=== PATIENT | male | born 1985 | race Caucasian/White ===

== ENCOUNTER 2016-07-27 10:42 | Emergency (ER) | payer SELFPAY ==
[~2016-07-27] VITALS: Ht 180.3 cm; Wt 123.4 kg
[~2016-07-27 10:42] MED LIST: AMOX875T PO; OXYC-244 PO
[2016-07-27 10:46] VITALS: BP 140/85
--- NOTE | 2016-07-27 10:56 | PHYS DOC ---
Past History Past Medical History: Seizure Past Surgical History: No Surgical History Alcohol Use: None Drug Use: None Adult General Chief Complaint Chief Complaint: SKIN PROBLEM HPI HPI 29 -year-old male patient states he has had multiple bedbugs bites and complaining of redness and pain in his right foot since this morning and thinks he has infection of the bedbug bite. Patient denies fever and chills, pus drainage, sick contacts, history of MRSA. Review of Systems Review of Systems Constitutional: Denies fever or chills [] Eyes: Denies change in visual acuity, redness, or eye pain [] HENT: Denies nasal congestion or sore throat [] Respiratory: Denies cough or shortness of breath [] Cardiovascular: No additional information not addressed in HPI [] GI: Denies abdominal pain, nausea, vomiting, bloody stools or diarrhea [] : Denies dysuria or hematuria [] Musculoskeletal: Denies back pain or joint pain [] Integument: See HPI Neurologic: Denies headache, focal weakness or sensory changes [] Endocrine: Denies polyuria or polydipsia [] Allergies Allergies Allergies Coded Allergies Type Severity Reaction Last Updated Verified cortisone Allergy Unknown Rash 07/27/16 Yes Physical Exam Physical Exam Constitutional: Mild distress, unkempt,non-toxic appearance. [] HENT: Normocephalic, atraumatic, bilateral external ears normal, oropharynx moist, no oral exudates, nose normal. [] Eyes: PERRLA, EOMI, conjunctiva normal, no discharge. [] Neck: Normal range of motion, no tenderness, supple, no stridor. [] Cardiovascular:Heart rate regular rhythm, no murmur [] Lungs & Thorax: Bilateral breath sounds clear to auscultation [] Skin: Multiple bedbugs bites, right foot with 4 x 8 cm area of erythema and edema and tenderness without sign of abscess in dorsal and lateral of foot Back: No tenderness, no CVA tenderness.right foot cellulitis [] Extremities: no cyanosis, no clubbing, ROM intact, no edema. [] Neurologic: Alert and oriented X 3, normal motor function, normal sensory function, no focal deficits noted. [] Psychologic: Affect normal, judgement normal, mood normal. [] Current Patient Data Vital Signs Vital Signs Date Time Temp Pulse Resp B/P Pulse Ox O2 Delivery O2 Flow Rate FiO2 3/24/17 10:46 97.9 98 18 98 Room Air EKG EKG [] Radiology/Procedures Radiology/Procedures [] Impressions: Right foot cellulitis Arvind Disclaimer Jeanettejanae Disclaimer This chart was dictated in whole or in part using Voice Recognition software in a busy, high-work load, and often noisy Emergency Department environment. It may contain unintended and wholly unrecognized errors or omissions. Departure Departure: Impression: Primary Impression: MRSA cellulitis of right foot Additional Impression: Bed bug bite Disposition: HOME, SELF-CARE (At 1100) Condition: STABLE Referrals: PCP,NO (PCP) Patient Instructions: Cellulitis, Community-Associated MRSA Additional Instructions: Keep wound clean and dry Follow up with your doctor or return to ER in not getting better in 2 days Scripts Cephalexin (Keflex)500 Mg Capsule2 Cap PO BID #28 CAP Prov:WERNER SANDOVAL MD 07/27/16 Sulfamethoxazole/Trimethoprim (Bactrim Ds Tablet)1 Each Tablet1 Tab PO BID #14 TAB Prov:WERNER SANDOVAL MD 07/27/16 Problem Qualifiers WERNER SANDOVAL MD Jul 27, 2016 10:56
[2016-07-27] MEDS ORDERED: SULF1TAB24 PO (11:04)
[2016-07-27] MEDS ORDERED: CEPH-264 PO (11:04)
== END 2016-07-27 11:12 | disposition home or self-care (01) ==
LOC: ER 10:42
DX: A49.02 Methicillin resistant Staphylococcus aureus infection, unspecified site (principal); M79.671 Pain in right foot; Z88.8 Allergy status to other drugs, medicaments and biological substances
CPT/HCPCS: 99283

== ENCOUNTER 2016-12-21 01:00 | Emergency (ER) | payer SELFPAY ==
[~2016-12-21] VITALS: Ht 180.3 cm; Wt 127.3 kg
[2016-12-21 01:00] VITALS: BP 133/82
[~2016-12-21 01:00] MED LIST changes: +CEPH-264 PO; -OXYC-244 PO; +OXYC-327 PO; +SULF1TAB24 PO
--- NOTE | 2016-12-21 01:33 | PHYS DOC ---
Past History Past Medical History: Seizure Past Surgical History: No Surgical History Alcohol Use: None Drug Use: None Adult General Chief Complaint Chief Complaint: DENTAL PROBLEM HPI HPI Patient is a 31 year old M who presents with dental pain. Kervin states that he had dental pain in his left upper molar starting approximately one week ago. He states that several days ago the tooth broke and the pain improved. He states that he grinds his teeth at night and tonight the pain woke him from sleep. He does take Dilantin which she states makes his gums bleed making it impossible for him to brush his teeth. He states that he has discussed this problem with his doctor and this is the only medication the has helped with his seizures. Review of Systems Review of Systems Constitutional: Denies fever or chills [] Eyes: Denies change in visual acuity, redness, or eye pain [] HENT: Denies nasal congestion or sore throat [] Respiratory: Denies cough or shortness of breath [] Cardiovascular: No additional information not addressed in HPI [] GI: Denies abdominal pain, nausea, vomiting, bloody stools or diarrhea [] : Denies dysuria or hematuria [] Musculoskeletal: Denies back pain or joint pain [] Integument: Denies rash or skin lesions [] Neurologic: Denies headache, focal weakness or sensory changes [] Endocrine: Denies polyuria or polydipsia [] Family History Family History Noncontributory Current Medications Current Medications Medications reviewed Allergies Allergies Allergies Coded Allergies Type Severity Reaction Last Updated Verified cortisone Allergy Unknown Rash 07/27/16 Yes Physical Exam Physical Exam Constitutional: Well developed, well nourished, no acute distress, non-toxic appearance. [] HENT: Normocephalic, atraumatic, bilateral external ears normal, oropharynx moist, no oral exudates, nose normal. Poor dental hygiene, mouth gum hypertrophy without bleeding, fractured left upper tooth that is tender to palpation Eyes: PERRLA, EOMI, conjunctiva normal, no discharge. [] Neck: Normal range of motion, no tenderness, supple, no stridor. [] Cardiovascular:Heart rate regular rhythm, no murmur [] Lungs & Thorax: Bilateral breath sounds clear to auscultation [] Skin: Warm, dry, no erythema, no rash. [] Extremities: No tenderness, no cyanosis, no clubbing, ROM intact, no edema. [] Neurologic: Alert and oriented X 3, normal motor function, normal sensory function, no focal deficits noted. [] Psychologic: Affect normal, judgement normal, mood normal. [] Current Patient Data Vital Signs Vital Signs Date Time Temp Pulse Resp B/P (MAP) Pulse Ox O2 Delivery O2 Flow Rate FiO2 12/21/16 01:00 97.9 72 20 98 Room Air Course & Med Decision Making Course & Med Decision Making Pertinent Labs and Imaging studies reviewed. (See chart for details) Kervin was advised that his symptoms were consistent with a dental infection requiring antibiotics. He was advised to begin his antibiotics in the emergency room. He repeatedly declined oral antibiotics stating that he did not have the money to fill the prescription. He was advised that not treating dental infections may result in . He verbalized understanding and continued to refuse antibiotics in the emergency room as well as a prescription for antibiotics. He states that he may be able to find help from a local hindu and if he did he would return to the emergency room for prescription he was advised to take a paper prescription to fill so that he would be able to start antibiotics as soon as he was able to find financial help. He again declined. He left AGAINST MEDICAL ADVICE Dragon Disclaimer Dragon Disclaimer This chart was dictated in whole or in part using Voice Recognition software in a busy, high-work load, and often noisy Emergency Department environment. It may contain unintended and wholly unrecognized errors or omissions. Departure Departure: Impression: Primary Impression: Tooth abscess Disposition: AGAINST MEDICAL ADVICE Condition: GUARDED Referrals: PCP,NO (PCP) Patient Instructions: Dental Abscess Additional Instructions: Kervin was seen in the emergency room for dental pain. He was found to have a dental infection requiring antibiotics. He left AGAINST MEDICAL ADVICE without receiving antibiotics. He was advised that dental infections may result in worsening conditions including . He did verbalize understanding and continued to decline antibiotics YONATHAN ALY MD Dec 21, 2016 01:33
[2016-12-21] MEDS ORDERED: AMOX1TAB61 PO (05:55)
== END 2016-12-21 01:28 | disposition left against medical advice (07) ==
LOC: ER 01:00
DX: K04.7 Periapical abscess without sinus (principal); Z88.8 Allergy status to other drugs, medicaments and biological substances
CPT/HCPCS: 99281

== ENCOUNTER 2016-12-21 05:35 | Emergency (ER) | payer SELFPAY ==
[~2016-12-21] VITALS: Ht 180.3 cm; Wt 127.3 kg
[2016-12-21 05:35] VITALS: BP 134/78
[2016-12-21] MEDS ORDERED: BUPIVACAINE MPF 0.5% 30 ML VIAL. ONE (05:53)
[2016-12-21] MEDS ORDERED: AMOX1TAB61 PO (05:55)
[2016-12-21] MEDS ORDERED: AMOXICILLIN/K CLAV 875/125MG TABLET. PO ONE (06:00)
--- NOTE | 2016-12-21 06:04 | PHYS DOC ---
Past History Past Medical History: Seizure Past Surgical History: No Surgical History Alcohol Use: None Drug Use: None Adult General Chief Complaint Chief Complaint: DENTAL PROBLEM HPI HPI Patient is a 31 year old M who presents with dental pain. Review of Systems Review of Systems Constitutional: Denies fever or chills [] Eyes: Denies change in visual acuity, redness, or eye pain [] HENT: Denies nasal congestion or sore throat [] Respiratory: Denies cough or shortness of breath [] Cardiovascular: No additional information not addressed in HPI [] GI: Denies abdominal pain, nausea, vomiting, bloody stools or diarrhea [] : Denies dysuria or hematuria [] Musculoskeletal: Denies back pain or joint pain [] Integument: Denies rash or skin lesions [] Neurologic: Denies headache, focal weakness or sensory changes [] Endocrine: Denies polyuria or polydipsia [] Family History Family History Noncontributory Current Medications Current Medications Medications reviewed Allergies Allergies Allergies Coded Allergies Type Severity Reaction Last Updated Verified cortisone Allergy Unknown Rash 07/27/16 Yes Physical Exam Physical Exam Constitutional: Well developed, well nourished, no acute distress, non-toxic appearance. [] HENT: Normocephalic, atraumatic, bilateral external ears normal, oropharynx moist, no oral exudates. Very poor dental hygiene, multiple dental caries and fractures, fracture pre-molar noted in the upper left that is tender to palpation. Mild gum hypertrophy with out bleeding noted Eyes: EOMI, conjunctiva normal, no discharge. [] Cardiovascular:Heart rate regular rhythm, no murmur [] Lungs & Thorax: Bilateral breath sounds clear to auscultation [] Skin: Warm, dry, no erythema, no rash. [] Extremities: No tenderness, no cyanosis, no clubbing, ROM intact, no edema. [] Neurologic: Alert and oriented X 3, normal motor function, normal sensory function, no focal deficits noted. [] Psychologic: Affect normal, judgement normal, mood normal. [] Current Patient Data Vital Signs Please refer to nursing documentation. Normal vital signs Radiology/Procedures Radiology/Procedures A dental block was performed using bupivacaine 0. 5% 1cc was placed in the left upper mouth between the lip and gum at the base of the affected tooth Verbal consent was obtained prior to the procedure. Kervin verbalized understanding that the procedure to reduce risk of infection and injury to surrounding tissue. Infection may be complicated . Kervin understands that the alternative is not to have this shot as this shot is strictly for pain control and not required for the treatment of his condition Course & Med Decision Making Course & Med Decision Making Pertinent Labs and Imaging studies reviewed. (See chart for details) Kervin was seen earlier in the day for the same complaint. At that time he refused antibiotics and left AGAINST MEDICAL ADVICE. He has returned and is willing to take antibiotics. He was started on oral antibiotics and advised follow potentially as soon as possible for further management Dragon Disclaimer Dragon Disclaimer This chart was dictated in whole or in part using Voice Recognition software in a busy, high-work load, and often noisy Emergency Department environment. It may contain unintended and wholly unrecognized errors or omissions. Departure Departure: Impression: Primary Impression: Dental abscess Disposition: HOME, SELF-CARE Condition: STABLE Referrals: PCP,NO (PCP) Patient Instructions: Dental Abscess Additional Instructions: Kervin was seen in the emergency room for dental pain. No emergency medical condition was found on history or physical exam. He was started on an oral antibiotic and was given a prescription to continue. He was advised to follow-up with his dentist as soon as possible for further management Scripts Amoxicillin/Potassium Clav (AUGMENTIN 875-125 TABLET) 1 Each Tablet 1 TAB PO BID for 14 Days, #28 TAB Prov: YONATHAN ALY MD 12/21/16 YONATHAN ALY MD Dec 21, 2016 06:04
[2016-12-21] MEDS ORDERED: BUPIVACAINE MPF 0.5% 10 ML VIAL. IJ ONE (06:15)
== END 2016-12-21 06:14 | disposition home or self-care (01) ==
LOC: ER 05:35
DX: K04.7 Periapical abscess without sinus (principal); Z88.8 Allergy status to other drugs, medicaments and biological substances
CPT/HCPCS: 64400; 99284-25

== ENCOUNTER 2017-03-18 19:16 | Emergency (ER) | payer SELFPAY ==
[~2017-03-18] VITALS: Ht 180.3 cm; Wt 127.3 kg
[~2017-03-18 19:16] MED LIST changes: +AMOX1TAB61 PO
[2017-03-18 19:30] VITALS: BP 143/97
[2017-03-18] MEDS ORDERED: HYDR-971 PO (19:51)
[2017-03-18] MEDS ORDERED: CLIN300C8 PO (19:51)
--- NOTE | 2017-03-18 19:55 | PHYS DOC ---
General Chief Complaint: DENTAL PROBLEM Stated Complaint: DENTAL PAIN Time Seen by MD: 19:43 Source: patient Exam Limitations: no limitations Problems: History of Present Illness Initial Comments Patient is a 31-year-old male who comes to the ED complaining of dental pain. Patient states that he's had bad teeth for a long time. He says over the past week he's had worsening lower molar pain and today has some swelling lateral to his lower left mandible. He denies difficulty swallowing or breathing no intraoral tongue or throat swelling no neck stiffness coughing or hoarseness. He states he can't afford to see a dentist and denies fever chills nausea vomiting. I advised the patient we could take care of his symptoms but that he had to see a dentist for resolution of the condition. I advised him that we would not continue to treat chronic conditions in the emergency department for which no definitive treatment was sought. Patient denies bony tenderness he is afebrile vital signs are stable Timing/Duration: last week Severity: moderate Location: mouth, dental Prearrival Treatment: over the counter meds Modifying Factors: improves with other Associated Symptoms: facial pain/swelling, tooth pain Allergies: Coded Allergies: cortisone (Verified Allergy, Unknown, Rash, 07/27/16) Past Medical History Medical History: other Surgical History: noncontributory Social History Smoker: cigarettes Alcohol: none Drugs: none Constitutional: denies chills, denies diaphoresis, denies fever, denies malaise Ears: denies dizziness, denies pain Mouth: see HPI Throat: denies pain, denies discharge, denies neck stiffness, denies painful swallowing, denies difficulty with fluids Respiratory: denies cough, denies shortness of breath Cardiovascular: denies chest pain, denies palpitations Gastrointestinal: denies nausea, denies vomiting Musculoskeletal: denies joint swelling, denies muscle pain, denies neck pain Neurological: denies headache, denies numbness, denies paresthesia Physical Exam General Appearance: no apparent distress, obese Nose: normal inspection Mouth/Throat: other (left lower molar caries with gingival swelling, there are some swelling lateral to the lower mandible as well low bony tenderness or purulence noted airway is patent) Neck: non-tender, full range of motion Cardiovascular/Respiratory: normal peripheral pulses, no respiratory distress 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 OTC ibuprofen for baseline pain control. Rx: clindamycin, norco 5mg #15 Take meds with food. Follow up with [facility] tomorrow for assistance getting in with a dentist. May also consider [facility] resource. The ED will not continue to refill meds for chronic conditions for which definitive care is not sought. Return to ED with new or changing symptoms TONIO JACOB DO Mar 18, 2017 19:55
[2017-03-18] MEDS ORDERED: CLINDAMYCIN HCL 150 MG CAPSULE PO ONE (20:00)
[2017-03-18] MEDS ORDERED: HYDROcodone/APAP 10/325 1 TAB TABLET PO ONE (20:00)
== END 2017-03-18 20:10 | disposition home or self-care (01) ==
LOC: ER 19:16
DX: K04.7 Periapical abscess without sinus (principal); L03.211 Cellulitis of face; F17.210 Nicotine dependence, cigarettes, uncomplicated; Z88.8 Allergy status to other drugs, medicaments and biological substances
CPT/HCPCS: 99283

== ENCOUNTER → 2019-12-24 | Outpatient (CLI) | payer OTHER ==
[~2019-12-24] MED LIST changes: +CLIN300C8 PO; +HYDR-3165 PO; -OXYC-327 PO; +OXYC1TAB19 PO
--- NOTE | 2019-12-24 14:28 | RAD ---
AP and lateral views right knee 12/24/2019 12:00 AM Indication: RIGHT KNEE PAIN Comparison: None Findings: There is no acute fracture or dislocation. Articular surfaces are uninterupted and smooth. Soft tissues are unremarkable. Impression: No evidence of acute osseous abnormality. Electronically signed by: Brian Colbert MD (12/24/2019 2:25 PM) [id number]
== END | disposition home or self-care (01) ==
LOC: DXRAD 12:48
PROVIDERS: ATTEND Family Medicine
DX: M25.561 Pain in right knee (principal)
CPT/HCPCS: 73560

== ENCOUNTER 2020-07-29 15:58 | Emergency (ER) | payer OTHER ==
[~2020-07-29] VITALS: Ht 182.9 cm; Wt 163.6 kg
[~2020-07-29 15:58] MED LIST changes: -CLIN300C8 PO; +CLIN300C9 PO
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
[2020-07-29] MEDS ORDERED: CONTRAST GIVEN. MC PRN (16:15)
[2020-07-29] MEDS ORDERED: IOHEXOL 300 MG/ML 75 ML VIAL. IV ONE (16:15)
[2020-07-29] MEDS ORDERED: KETOROLAC 30 MG/ML VIAL. IVP ONE (16:15)
--- NOTE | 2020-07-29 16:30 | EKG ---
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
[2020-07-29] MEDS ORDERED: DIPH,PERTUSS(ACELL),TET VAC/PF 0.5 ML SYRINGE. VAX IM ONE (16:45)
[2020-07-29 17:10] VITALS: BP 155/90
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
[2020-07-29 17:52] LABS: BASO % 0 % (0-3); EOS % 0 % (0-3); HEMATOCRIT 43.4 % (39.0-53.0); LYMPH # 1.6 x10^3/uL (1.0-4.8); LYMPH % 17 % (24-48); MEAN CORPUSCULAR HEMOGLOBIN 31 pg (25-35); MEAN CORPUSCULAR HGB CONC 35 g/dL (31-37); MEAN CORPUSCULAR VOLUME 89 fL (79-100); MONO # 0.7 x10^3/uL (0.0-1.1); MONO % 8 % (0-9); NEUT # 6.8 x10^3uL (1.8-7.7); NEUT % 75 % (31-73); PLATELET COUNT 213 x10^3/uL (140-400); RED BLOOD COUNT 4.88 x10^6/uL (4.30-5.70); WHITE BLOOD COUNT 9.1 x10^3/uL (4.0-11.0)
[2020-07-29 18:06] LABS: CALCIUM 9.2 mg/dL (8.5-10.1); CREATININE 0.8 mg/dL (0.7-1.3); GFR 108.8; POTASSIUM 3.7 mmol/L (3.5-5.1)
[2020-07-29 18:11] LABS: ALBUMIN 3.7 g/dL (3.4-5.0); ALBUMIN/GLOBULIN RATIO 0.9 (1.0-1.7); TOTAL BILIRUBIN 0.2 mg/dL (0.2-1.0); TOTAL PROTEIN 7.6 g/dL (6.4-8.2)
[2020-07-29] MEDS ORDERED: IBUP600T16 PO (18:56)
[2020-07-29] MEDS ORDERED: CYCL-331 PO (18:56)
[2020-07-29] MEDS ORDERED: BACITRACIN ZINC TOPICAL OINT PACKET. TP ONE ×2 (19:00→19:02)
== END 2020-07-29 19:00 | disposition home or self-care (01) ==
LOC: ER 15:58
DX: S60.222A Contusion of left hand, initial encounter (principal); S90.02XA Contusion of left ankle, initial encounter; S90.01XA Contusion of right ankle, initial encounter; S80.212A Abrasion, left knee, initial encounter; R07.81 Pleurodynia; R07.89 Other chest pain; R94.8 Abnormal results of function studies of other organs and systems; Z88.8 Allergy status to other drugs, medicaments and biological substances; V98.8XXA Other specified transport accidents, initial encounter; Y93.89 Activity, other specified; Y92.89 Other specified places as the place of occurrence of the external cause; Y99.8 Other external cause status
CPT/HCPCS: 29515; 36415; 70450; 71260; 72125; 73110; 73130; 73610; 74177; 80053; 84484; 85025; 85610; 85730; 90471; 90715; 93005; 96374; 99285; G0480; J1885; Q9967